=== PATIENT | male | born 1990 | race Caucasian/White ===

== ENCOUNTER 2017-10-09 11:30 | Emergency (ER) | payer SELFPAY ==
[2017-10-09] MEDS ORDERED: predniSONE TAB* 20 MG PO ONE (13:35)
[2017-10-09] MEDS ORDERED: Famotidine TAB* 20 MG PO ONE (13:36)
--- NOTE | 2017-10-09 14:26 | ED ---
Allergic Reaction/Systemic - HPI Summary HPI Summary: 27-year-old male presents with allergic reaction since last night. 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 He states he's had this reaction before. He states it been taking Benadryl. He states that his face has been swelling up. He denies any chest pain or shortness breath. No bowel pain. No nausea and vomiting. No tongue swelling or difficulty swallowing. He has no medical conditions. - History of Current Complaint Chief Complaint: EDAllergicReaction Time Seen by Provider: 10/09/17 13:20 Pain Intensity: 0 - Allergies/Home Medications Allergies/Adverse Reactions: Allergies Allergy/AdvReac Type Severity Reaction Status Date / Time Sulfa (Sulfonamide Allergy Unknown Verified 10/09/17 13:29 Antibiotics) Reaction Details PMH/Surg Hx/FS Hx/Imm Hx Endocrine/Hematology History: Denies: Hx Anticoagulant Therapy Cardiovascular History: Denies: Hx Myocardial Infarction Infectious Disease History: No Infectious Disease History: Denies: Traveled Outside the [place] in Last 30 Days - Family History Known Family History: Negative: Hypertension - Social History Alcohol Use: Occasionally Substance Use Type: Reports: Marijuana Smoking Status (MU): Never Smoked Tobacco Review of Systems Negative: Fever Negative: Chest Pain Negative: Shortness Of Breath Positive: Rash All Other Systems Reviewed And Are Negative: Yes Physical Exam Triage Information Reviewed: Yes Vital Signs On Initial Exam: Initial Vitals Temp Pulse Resp BP Pulse Ox 98.4 F 64 16 111/69 100 10/09/17 11:34 10/09/17 11:34 10/09/17 11:34 10/09/17 11:34 10/09/17 11:34 Vital Signs Reviewed: Yes Appearance: Positive: Well-Appearing Skin: Positive: Warm, Dry, Other - urticaria across neck and body, erythema on face, no angioedema Eyes: Positive: Normal, EOMI, CINDY, Conjunctiva Clear ENT: Positive: Normal ENT inspection, Pharynx normal, TMs normal Respiratory/Lung Sounds: Positive: Clear to Auscultation, Breath Sounds Present Cardiovascular: Positive: Normal, RRR Abdomen Description: Positive: Nontender, Soft Bowel Sounds: Positive: Present Musculoskeletal: Positive: Normal Neurological: Positive: Normal Psychiatric: Positive: Normal Diagnostics - Vital Signs Vital Signs Temp Pulse Resp BP Pulse Ox 10/09/17 11:34 98.4 F 64 16 111/69 100 - Laboratory Lab Statement: Any lab studies that have been ordered have been reviewed, and results considered in the medical decision making process. Re-Evaluation - Re-Evaluation First Eval Change: Improved Comment: feeling better, less urticaria Allergic Reaction Course/Dx - Course Course Of Treatment: 27-year-old male presents with allergic reaction since last night. 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 He states he's had this reaction before. He states it been taking Benadryl. He states that his face has been swelling up. He denies any chest pain or shortness breath. No bowel pain. No nausea and vomiting. No tongue swelling or difficulty swallowing. He has no medical conditions. On exam has erythema to the face. Allergic rhinitis to neck and across body. Lungs clear to auscultation. Pharynx normal. Gave prednisone and patient feels better. We 'll discharge with Pepcid prednisone and told to continue taking the Benadryl. Patient understands agrees with plan. - Diagnoses Differential Diagnosis/HQI/PQRI: Positive: Anaphylaxis, Local Allergic Reaction , Urticaria Provider Diagnoses: Urticaria Discharge - Sign-Out/Discharge Documenting (check all that apply): Patient Departure - Discharge Plan Condition: Good Disposition: HOME Prescriptions: Famotidine TAB* [Pepcid 20 MG TAB*] 20 mg PO BID #14 tab predniSONE TAB* [Deltasone TAB*] 50 mg PO DAILY #4 tab Patient Education Materials: Urticaria (ED) Forms: *Work Release Referrals: No Primary Care Phys,NOPCP [Primary Care Provider] - Additional Instructions: Take Benadryl every 6 hours Can apply cream with hydrocortisone to area for itchy take pepcid twice a day take steroid once a day for 4 days Return to ED if develop shortness of breath, difficulty swallowing or any new or worsening symptoms - Billing Disposition and Condition Condition: GOOD Disposition: Home
[2017-10-09 14:58] VITALS: BP 105/65
== END 2017-10-09 14:57 | disposition home or self-care (01) ==
LOC: ED 11:30
DX: L50.9 Urticaria, unspecified (principal); J30.9 Allergic rhinitis, unspecified; Z88.2 Allergy status to sulfonamides
CPT/HCPCS: 99282; A9270-GY; J7512

== ENCOUNTER 2018-08-11 12:43 | Emergency (ER) | payer SELFPAY ==
[2018-08-11 12:56] VITALS: BP 101/62
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
== END 2018-08-11 13:30 | disposition home or self-care (01) ==
LOC: UCEAST 12:43
DX: S46.002A Unspecified injury of muscle(s) and tendon(s) of the rotator cuff of left shoulder, initial encounter (principal); V19.9XXA Pedal cyclist (driver) (passenger) injured in unspecified traffic accident, initial encounter; Y93.55 Activity, bike riding; Y92.9 Unspecified place or not applicable
CPT/HCPCS: 99211; G0463

== ENCOUNTER 2018-10-20 09:21 | Emergency (ER) | payer SELFPAY ==
[2018-10-20] MEDS ORDERED: methylPREDNISolone 125 MG* 2 ML VIAL IV ONE (09:27)
[2018-10-20] MEDS ORDERED: Famotidine IV* 10 MG/ML 2 ML (20 mg) IV SLOW PU ONE (09:28)
[2018-10-20] MEDS ORDERED: diPHENhydraMINE IV* 50 MG/ML 1 ml VIAL (BENADRYL) IV ONE (09:28)
[2018-10-20] MEDS ORDERED: LoraTADine TAB(NF) 10 MG TAB (AUTOSUB to CETIRIZINE) PO ONE (09:30)
[2018-10-20] MEDS ORDERED: NS 0.9% 1000 ML** 1,000 ML IV ONE (09:32)
[2018-10-20] MEDS ORDERED: Ondansetron INJ* 2 MG/ML VIAL IV ONE (09:42)
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
[2018-10-20 11:45] VITALS: BP 106/51
== END 2018-10-20 11:56 | disposition home or self-care (01) ==
LOC: UCEAST 09:21
DX: T63.441A Toxic effect of venom of bees, accidental (unintentional), initial encounter (principal); Y92.9 Unspecified place or not applicable; Z88.2 Allergy status to sulfonamides
CPT/HCPCS: 96360; 96374; 96375; 99212; A9270-GY; G0463; J2405; J2930